=== PATIENT | female | born 1975 | race Caucasian/White ===

== ENCOUNTER → 2017-04-17 | Outpatient (CLI) | payer BC ==
--- NOTE | 2017-04-17 16:41 | US ---
EXAMINATION TYPE: US pelvic complete DATE OF EXAM: 04/17/2017 COMPARISON: Previous study dated 07/14/2015. CLINICAL HISTORY: R10.2 PELVIC PAIN,D25.9 KNOWN UTERINE LEIOMYOMA. Patient is scheduled for hysterect lora May 25 due to pain and pressure from known fibroids, patient states she has a hard time filling bl adder due to pressure from fibroids. TECHNIQUE: TA Date of LMP: 03/31/2017 EXAM MEASUREMENTS: Uterus: 13.8 x 10.9 x 9.0cm Endometrial Stripe: 1.2cm Right Ovary: 3.6 x 2.6 x 2.5cm Left Ovary: not seen 1. Uterus: Anteverted large in size, multiple fibroids, largest 2 that were seen were left sided a nd measured 7.9cm and 5.4cm 2. Endometrium: wnl 3. Right Ovary: wnl 4. Left Ovary: not seen, large uterine fibroids sat left sided which may have obscured views along w ith bowel gas 5. Bilateral Adnexa: wnl 6. Posterior cul-de-sac: wnl IMPRESSION: FIBROID UTERUS.
== END | disposition home or self-care (01) ==
LOC: RADUSWWP 15:10
PROVIDERS: ATTEND Obstetrics & Gynecology
DX: D25.9 Leiomyoma of uterus, unspecified (principal); N92.0 Excessive and frequent menstruation with regular cycle
CPT/HCPCS: 36415; 76856; 84439; 84443

== ENCOUNTER → 2017-04-30 | Outpatient (CLI) | payer BC ==
--- NOTE | 2017-05-01 12:06 | XR ---
Right foot HISTORY: Pain 3 views of the right foot No comparisons Mild degenerative change present at the first metatarsophalangeal joint. Bone mineralization, joint s paces and alignment are essentially maintained. No fracture or dislocation. IMPRESSION: Mild degenerative changes described.
== END ==
LOC: RADXRMAIN 19:05
PROVIDERS: ATTEND Family Medicine
DX: M79.671 Pain in right foot (principal)

== ENCOUNTER → 2017-05-03 | Outpatient (CLI) | payer BC ==
--- NOTE | 2017-05-04 09:51 | MM ---
Reason for exam: screening (asymptomatic). Physical Findings: A clinical breast exam by your physician is recommended on an annual basis and results should be correlated with mammographic findings. MG Screening Mammo w CAD Bilateral CC and MLO view(s) were taken. No prior studies available for comparison. The breast tissue is heterogeneously dense. This may lower the sensitivity of mammography. No significant changes when compared with prior studies. ASSESSMENT: Benign, BI-RAD 2 RECOMMENDATION: Routine screening mammogram of both breasts in 1 year.
== END ==
LOC: RADMAMWWP 07:23
PROVIDERS: ATTEND Obstetrics & Gynecology
DX: Z12.31 Encounter for screening mammogram for malignant neoplasm of breast (principal)

== ENCOUNTER → 2017-05-18 | Outpatient (CLI) | payer BC ==
[2017-05-18 08:41] LABS: Basophils % (A) 1 %; CH 30.5; CHCM 34.6; Eosinophils # (A) 0.2 k/uL (0-0.7); Eosinophils % (A) 4 %; HCT 43.3 % (34.0-46.0); HDW 2.64; HGB 14.5 gm/dL (11.4-16.0); Luc # (Auto) 0.16; Luc % (Auto) 2; Lymphocytes # (A) 1.6 k/uL (1.0-4.8); Lymphocytes % (A) 25 %; MCH 29.7 pg (25.0-35.0); MCHC 33.5 g/dL (31.0-37.0); MCV 88.5 fL (80.0-100.0); Mean Platelet Volume 7.8; Monocytes # (A) 0.3 k/uL (0-1.0); Monocytes % (A) 4 %; Neutrophils # (A) 4.3 k/uL (1.3-7.7); Neutrophils % (A) 65 %; RBC 4.89 m/uL (3.80-5.40); RDW 13.6 % (11.5-15.5); WBC 6.7 k/uL (3.8-10.6); WBC (Perox) 6.46
[2017-05-18 08:48] LABS: Anion Gap 7 mmol/L; Blood Urea Nitrogen 12 mg/dL (7-17); Calcium 9.1 mg/dL (8.4-10.2); Carbon Dioxide 27 mmol/L (22-30); Chloride 106 mmol/L (98-107); Glucose 92 mg/dL (74-99); Non-African American GFR(MDRD) >60 (>60 ml/min/1.73 sqM); Potassium 4.3 mmol/L (3.5-5.1); Sodium 140 mmol/L (137-145)
== END | disposition home or self-care (01) ==
LOC: LABPAT 07:52
PROVIDERS: ATTEND Obstetrics & Gynecology
DX: Z01.812 Encounter for preprocedural laboratory examination (principal)
CPT/HCPCS: 80048; 85025; 86850; 86900; 86901

== ENCOUNTER 2017-05-25 06:09 | Inpatient (IN) | payer BC, OTHER ==
--- NOTE | 2017-05-24 18:41 | P.HPOB ---
History of Present Illness H&P Date: 05/24/17 Chief Complaint: Menorrhagia, uterine fibroids, pelvic pain This is a 41-year-old female 2 para 2 who presents for total abdominal hysterectomy with bilateral salpingectomy, possible bilateral salpingo- oophorectomy, due to pelvic pain, excessive menstrual bleeding, and uterine fibroids. She complains of severe pain during her menses she did try a control pill which did not help with the pain. She bleeds very heavy for at least 7 days with large clots. Her most recent pelvic ultrasounds showed a uterus measuring 13.8 x 10.9 x 9 cm with an endometrial stripe of 1.2 cm. Her right ovary appeared normal and her left ovary was not visualized. Her uterus did show multiple fibroids largest measured up to 7.9 cm. Obstetrical history: . History of 2 vaginal deliveries. Gynecologic history: No history of sexually transmitted diseases Social history: She is and currently works as a teacher. She currently has steady boyfriend since 2011. Review of Systems Constitutional: Denies chills, Denies fever Eyes: denies blurred vision, denies pain Ears, nose, mouth and throat: Denies headache, Denies sore throat Cardiovascular: Denies chest pain, Denies shortness of breath Respiratory: Denies cough Gastrointestinal: Reports abdominal pain (Lower abdominal), Reports constipation Genitourinary: Reports dysmenorrhea, Reports menorrhagia, Reports pelvic pain, Reports stress incontinence Menstruation: Reports period heavy Musculoskeletal: Reports low back pain Integumentary: Denies pruritus, Denies rash Neurological: Reports headaches Psychiatric: Reports depression, Reports irritability Past Medical History Past Medical History: GERD/Reflux Additional Past Medical History / Comment(s): FIBROIDS. URINARY INCONTINENCE. BLOATING History of Any Multi-Drug Resistant Organisms: MRSA Date of last positivie culture/infection: 02/2012 MDRO Source:: SKIN:LEFT KNEE,HIP & SHOULDER Additional Past Surgical History / Comment(s): WISDOM TEETH, IMPLANT, EXTRACTION Past Anesthesia/Blood Transfusion Reactions: No Reported Reaction Past Psychological History: Anxiety, Depression Smoking Status: Never smoker Past Alcohol Use History: Rare Past Drug Use History: None Reported - Past Family History Mother Family Medical History: Cancer, Deep Vein Thrombosis (DVT) Medications and Allergies Home Medications Medication Instructions Recorded Confirmed Type ALPRAZolam [Xanax] 0.5 mg PO Q8H PRN 05/23/17 05/23/17 History Calcium Carbonate [Tums] 1 - 2 tab PO DIRECTED PRN 05/23/17 05/23/17 History Allergies Allergy/AdvReac Type Severity Reaction Status Date / Time Fish Containing Products Allergy Rash/Hives Verified 05/23/17 08:45 [Fish] Iodinated Contrast- Oral and Allergy Rash/Hives Verified 05/23/17 08:45 IV Dye [Iodinated Contrast Media - IV Dye] nickel Allergy Rash/Hives Verified 05/23/17 08:45 shellfish derived [Shellfish] Allergy Rash/Hives Verified 05/23/17 08:45 Exam Osteopathic Statement: *. No significant issues noted on an osteopathic structural exam other than those noted in the History and Physical/Consult. HEENT: Within normal limits Heart: Regular rate and rhythm Lungs: Clear to auscultation bilaterally Abdomen: Soft, nontender Pelvic exam: Uterus is enlarged to approximately 15 weeks size with nodularity more towards the left side. Uterus is nontender, left adnexa is mildly tender with no adnexal masses palpated. Extremities: Negative Homans Assessment and Plan (1) Menorrhagia with regular cycle Status: Acute (2) Uterine leiomyoma Status: Acute (3) Pelvic pain Status: Acute Plan: Proceed with total abdominal hysterectomy with bilateral salpingectomy, possible bilateral salpingo-oophorectomy. I have discussed the risks, benefits, and alternative therapies for the above- mentioned procedure and for both sedation/anesthesia as well as necessary blood products administration, if indicated, as they pertain to this patient. The patient has indicated her understanding and acceptance of the risks and procedures discussed.
[~2017-05-25 06:09] MED LIST: ceFAZolin 2 GM in SODIUM CHLORIDE 0.9% 100 ML IVPB ONE
[2017-05-25] MEDS ORDERED: SCOPOLAMINE 1.5MG/72HR PATCH TRANSDERM ONE (06:11)
[2017-05-25] MEDS ORDERED: LIDOCAINE 1% 20 ML VIAL (10MG/ML) FOR IV START INTRADERMA PRN (06:11)
[2017-05-25] MEDS ORDERED: ONDANSETRON 4 MG/2 ML VIAL IVP ONE (06:11)
[2017-05-25] MEDS ORDERED: DEXAMETHASONE SOD PHOSPHATE 10 MG/ML 1 ML VIAL IV ONE (06:11)
[2017-05-25] MEDS ORDERED: LACTATED RINGERS 1,000 ML IV SCH (06:11)
[2017-05-25] MEDS ORDERED: NEOSTIGMINE 1 MG/ML 10 ML VIAL ONE (07:28)
[2017-05-25] MEDS ORDERED: PROPOFOL 10 MG/ML 20 ML VIAL IV ONE (07:28)
[2017-05-25] MEDS ORDERED: MIDAZOLAM 2 MG/2 ML VIAL ONE (07:28)
[2017-05-25] MEDS ORDERED: fentaNYL (PF) 50 MCG/ML 2 ML AMP ONE (07:28)
[2017-05-25] MEDS ORDERED: LABETALOL 5 MG/ML VIAL MDV ONE (07:28)
[2017-05-25] MEDS ORDERED: ROCURONIUM BROMIDE 10 MG/ML 10 ML VIAL IV ONE (07:28)
[2017-05-25] MEDS ORDERED: SUCCINYLCHOLINE CHLORIDE 100 MG/5 ML SYR IV ONE (07:28)
[2017-05-25] MEDS ORDERED: GLYCOPYRROLATE 0.2 MG/ML 2 ML VIAL ONE ×2 (07:28)
[2017-05-25] MEDS ORDERED: NALBUPHINE 10 MG/ML AMPUL IV PRN (08:27)
[2017-05-25] MEDS ORDERED: NALOXONE 0.4 MG/ML 1 ML VIAL IV PRN (08:27)
[2017-05-25] MEDS ORDERED: MORPHINE SULFATE 4 MG/ML SYRINGE IVP PRN (08:27)
[2017-05-25] MEDS ORDERED: diphenhydrAMINE 50 MG/ML 1 ML VIAL IVP PRN ×2 (08:27→10:53)
[2017-05-25] MEDS ORDERED: LACTATED RINGERS 1,000 ML IV ONE (08:30)
--- NOTE | 2017-05-25 09:12 | P.OP ---
Date of Procedure: 05/25/17 Preoperative Diagnosis: 1. Menorrhagia with regular cycle. 2. Large uterine fibroids. 3. Pelvic pain. Postoperative Diagnosis: Same Procedure(s) Performed: Total abdominal hysterectomy with bilateral salpingectomy Implants: Anesthesia: GETA, spinal (Duramorph) Surgeon: Bonnie Mak Kayak Maker #1: Yany Thompson Estimated Blood Loss (ml): 400 Urine output (ml): 100 Pathology: other (Uterus with cervix and bilateral fallopian tubes) Condition: stable Disposition: floor Indications for Procedure: This is a 41-year-old female 2 para 2 who presents for total abdominal hysterectomy with bilateral salpingectomy, possible bilateral salpingo- oophorectomy, due to pelvic pain, excessive menstrual bleeding, and uterine fibroids. She complains of severe pain during her menses she did try a control pill which did not help with the pain. She bleeds very heavy for at least 7 days with large clots. Her most recent pelvic ultrasounds showed a uterus measuring 13.8 x 10.9 x 9 cm with an endometrial stripe of 1.2 cm. Her right ovary appeared normal and her left ovary was not visualized. Her uterus did show multiple fibroids largest measured up to 7.9 cm. Operative Findings: Uterus is very large and bulky with multiple large fibroids noted. Both ovaries appeared normal. Both tubes appeared normal. Description of Procedure: The patient is taken to the operating room where she is placed in the dorsal supine position. She is prepped and draped in the normal sterile fashion including Perez catheter insertion and vaginal prep. A Pfannenstiel skin incision is made through the previous laparotomy scar with a scalpel. A second knife was used to carry the incision down to the underlying layer of fascia. The fascia was nicked in the midline with a scalpel and then extended laterally bilaterally with Perez scissors. The superior aspect of the fascial incision was grasped with Nirali clamps, elevated off the underlying rectus muscle in the midline and then cut with Perez scissors. The inferior aspect of the fascial incision was grasped with Nirali clamps, elevated off the underlying rectus muscle in the midline and then cut with Perez scissors. Next the peritoneum was identified and entered sharply with Perez scissors. It is extended superiorly and inferiorly with Metzenbaum scissors with good visualization of underlying structures. Next the Yuan retractor is placed in the bladder blade was inserted. The bowels were packed with a 3 yard moist laparotomy sponge. Next the uterus is brought up incision and the corneal regions are grasped with Sylvia clamps on both sides. Next the fallopian tube on the left side is brought up to the incision and the mesosalpinx is clamped with a Shabana clamp. This is cut with Perez scissors and then sutured with 0 Vicryl suture in Shabana transfixion stitch. The remaining mesosalpinx is also clamped with a Shabana clamp, cut with Perez scissors, and sutured with 0 Vicryl suture in Shabana transfixion stitches. Next the uterine ovarian ligament is clamped with a Shbaana clamp, cut with Perez scissors, and then sutured with 0 Vicryl suture in Shabana transfixion stitch. The same procedure is carried out on the right side. The uterine arteries are then clamped with Shabana clamp on either side. The vesicouterine peritoneum was sharply dissected away from the bladder with Metzenbaum scissors and pushed inferiorly. The uterine arteries are then cut with Perez scissors, and sutured with 0 Vicryl suture in Shabana transfixion stitches. Next the cardinal ligaments were clamped on either side with Shabana clamp, cut with Perez scissors, and sutured with 0 Vicryl suture in Shabana transfixion stitches. The uterosacral ligaments are clamped on either side with Shabana clamps, cut with Perez scissors, and sutured with 0 Vicryl suture in Shabana transfixion stitches on either side. The edges of the vaginal cuff were clamped on either side with a Shabana clamp, cut with Perez scissors, and sutured with 0 Vicryl suture in Shabana transfixion stitches and held on either side. The vaginal mucosa was then cut just below the level of the cervix and the specimen is removed from the field. The edges of the vaginal cuff were held with Nirali clamps. Next the previously held corners of each side of the vaginal cuff were then whipstitched along the connective tissue on either side and brought through the corner of the cuff and tied. Next the vaginal cuff was sutured with 0 Vicryl suture in a running locked fashion. Several interrupted stitches were placed for hemostasis. Good hemostasis was noted. Copious irrigation is carried out with warm saline. Excellent hemostasis is noted. All sponges are removed from the abdomen. The peritoneum is then closed with 0 Vicryl suture in a running fashion. The muscle was then reapproximated with 0 Vicryl suture in interrupted fashion. The fascia layer is then closed with 0 PDS suture in a running fashion with the knots buried on either side and in the midline. Next the subcutaneous tissues closed with 2-0 Vicryl suture in a running fashion. The skin is closed with pippa. All sponge and needle counts are correct and the patient is taken to recovery room in stable condition.
[2017-05-25] MEDS: HYDROmorphone 1 MG/ML 1 ML SYRINGE IVP PRN ×4 (09:34→10:02)
[2017-05-25] MEDS: KETOROLAC 30 MG/ML 1 ML VIAL IVP PRN ×2 (09:39→18:03)
[2017-05-25] MEDS ORDERED: MIDAZOLAM 2 MG/2 ML VIAL IVP ONE (10:06)
[2017-05-25] MEDS ORDERED: METOCLOPRAMIDE 5 MG/ML 2 ML VIAL IVP PRN (10:53)
[2017-05-25] MEDS ORDERED: SIMETHICONE 80 MG CHEWABLE PO PRN (10:53)
[2017-05-25] MEDS ORDERED: ONDANSETRON 4 MG/2 ML VIAL IVP PRN (10:53)
[2017-05-25] MEDS ORDERED: ALPRAZolam 0.5 MG TAB PO PRN (10:53)
[2017-05-25] MEDS ORDERED: KETOROLAC 30 MG/ML 1 ML VIAL IVP PRN (10:53)
[2017-05-25] MEDS ORDERED: Acetaminophen-Codeine 300-30mg TAB PO PRN (10:53)
[2017-05-25 11:25] VITALS: BMI 32.5
[2017-05-25] MEDS: LACTATED RINGERS 1,000 ML IV SCH ×2 (13:10→22:14)
[2017-05-25] MEDS: SENNOSIDES-DOCUSATE SODIUM 1 EACH TAB PO SCH ×2 (17:33→22:18)
[2017-05-26] MEDS: KETOROLAC 30 MG/ML 1 ML VIAL IVP PRN (00:06)
[2017-05-26 06:45] LABS: Basophils % (A) 0 %; CH 30.6; Eosinophils % (A) 0 %; HCT 34.5 % (34.0-46.0); HDW 2.56; Luc # (Auto) 0.16; Luc % (Auto) 2; Lymphocytes # (A) 1.7 k/uL (1.0-4.8); Lymphocytes % (A) 21 %; MCH 29.7 pg (25.0-35.0); MCHC 32.9 g/dL (31.0-37.0); MCV 90.2 fL (80.0-100.0); Mean Platelet Volume 8.1; Monocytes # (A) 0.5 k/uL (0-1.0); Monocytes % (A) 6 %; Neutrophils # (A) 5.8 k/uL (1.3-7.7); Neutrophils % (A) 71 %; RBC 3.82 m/uL (3.80-5.40); RDW 13.6 % (11.5-15.5); WBC 8.2 k/uL (3.8-10.6); WBC (Perox) 8.35
[2017-05-26 06:51] LABS: HGB 11.3 gm/dL (11.4-16.0)
--- NOTE | 2017-05-26 06:56 | P.PN ---
Subjective Principal diagnosis: Status post XAVIER with bilateral salpingectomy postoperative day #1 The patient is doing well. She has been ambulating. Her catheter was just removed this morning and she is not urinated yet. Pain is well-controlled with Toradol at this time. She denies any flatus or bowel movement yet. Objective - Vital Signs Vital signs: Vital Signs Temp 97.1 F L 05/26/17 05:00 Pulse 91 05/26/17 05:00 Resp 20 05/26/17 05:00 BP 111/65 05/26/17 05:00 Pulse Ox 99 05/26/17 05:00 Intake & Output 05/25/17 05/25/17 05/26/17 06:59 18:59 06:59 Intake Total 300 1650 200 Output Total 800 4100 Balance 300 850 -3900 Weight 86.183 kg Intake: IV 300 1100 Oral 550 200 Output: Urine 400 4100 Estimated Blood Loss 400 Other: Voiding Method Indwelling Catheter Indwelling Catheter - Constitutional General appearance: Present: no acute distress - Gastrointestinal Gastrointestinal Comment(s): Abdominal incision is clean dry and intact with pippa in place. No erythema is noted. Minimal tenderness is noted around the incision. General gastrointestinal: Present: normal bowel sounds. Absent: tenderness - Psychiatric Psychiatric: Present: A&O x's 3 - Labs CBC & Chem 7: 05/26/17 06:17 Labs: Abnormal Lab Results - Last 24 Hours (Table) 05/26/17 Range/Units 06:17 Hgb 11.3 L D (11.4-16.0) gm/dL Assessment and Plan (1) Menorrhagia with regular cycle Status: Acute (2) Uterine leiomyoma Status: Acute (3) Pelvic pain Status: Acute Plan: Impression is status post total abdominal hysterectomy with bilateral salpingectomy postoperative day #1. Plan is to continue with postoperative care. We will encourage ambulation and will advance diet as tolerated after flatus. Will Hep-Lock IV.
[2017-05-26] MEDS ORDERED: ACETAMINOPHEN TAB 325 MG TAB PO PRN (07:50)
[2017-05-26] MEDS: SENNOSIDES-DOCUSATE SODIUM 1 EACH TAB PO SCH ×2 (11:19→21:47)
--- NOTE | 2017-05-26 12:12 | P.PN ---
Progress Note - Text Date:[] Time:[] Patient is status post [jean]. Patient seen this morning with VAS score of [2]. c /o of pruritus, c/o nausea/vomiting, comfortable and doing well.
[2017-05-26] MEDS: Acetaminophen-Codeine 300-30mg TAB PO PRN ×2 (13:25→19:54)
[2017-05-26] MEDS: IBUPROFEN 600 MG TAB PO PRN ×2 (16:33→23:13)
[2017-05-26] MEDS: LACTATED RINGERS 1,000 ML IV SCH (20:25)
[2017-05-27] MEDS: Acetaminophen-Codeine 300-30mg TAB PO PRN ×2 (03:20→10:35)
[2017-05-27] MEDS: LACTATED RINGERS 1,000 ML IV SCH (06:25)
[2017-05-27] MEDS: IBUPROFEN 600 MG TAB PO PRN (06:31)
[2017-05-27] MEDS: SENNOSIDES-DOCUSATE SODIUM 1 EACH TAB PO SCH (08:13)
[2017-05-27 08:29] VITALS: BP 126/71; PULSE 97; RESP 20; TEMP 98.8
--- NOTE | 2017-05-27 11:02 | P.DS ---
Providers Date of admission: 05/25/17 06:09 Expected date of discharge: 05/27/17 Attending physician: Bonnie Mak Primary care physician: Juanito Terrazas - Discharge Diagnosis(es) (1) Menorrhagia with regular cycle Current Visit: Yes Status: Acute (2) Uterine leiomyoma Current Visit: Yes Status: Acute (3) Pelvic pain Current Visit: Yes Status: Acute Hospital Course: Qit-klnf-hto female who underwent a total abdominal hysterectomy with bilateral salpingectomy on 05/25/2017. Her postoperative course has been essentially uncomplicated. She is passing flatus and bowel movement. Her pain is fairly well controlled with ibuprofen and Tylenol 3. She is feeling slightly bloated today but thinks she did a little bit too much yesterday. She would still like to go home. Her vital signs are stable. Abdomen is soft with hazard bowel sounds 4. Incision is clean dry and intact with pippa in place. Extremities show negative Homans. Impression is status post total abdominal hysterectomy with bilateral salpingectomy postoperative day #2. Plan is to discharge home today. [place] will be removed and Steri-Strips placed prior to discharge. Routine postoperative instructions are given. She is advised to follow up in the office in approximately 1 week for a postoperative check. She is advised to call the office if she has any further questions or concerns prior to her appointment time. She will be given prescriptions for ibuprofen and Tylenol 3. Procedures: Total abdominal hysterectomy with bilateral salpingectomy on 05/25/2017 Patient Condition at Discharge: Stable Plan - Discharge Summary New Discharge Prescriptions: New Acetaminophen-Codeine 300-30mg [Tylenol w/codeine #3] 1 each PO Q4HR PRN #30 tab PRN Reason: Moderate Pain Ibuprofen [Motrin] 600 mg PO Q6HR PRN #60 tab PRN Reason: Mild Discomfort Continue ALPRAZolam [Xanax] 0.5 mg PO Q8H PRN PRN Reason: Anxiety No Action Calcium Carbonate [Tums] 1 - 2 tab PO QID PRN MDD 7 TABS PRN Reason: GERD Discharge Medication List ALPRAZolam [Xanax] 0.5 mg PO Q8H PRN 05/23/17 [History] Calcium Carbonate [Tums] 1 - 2 tab PO QID PRN MDD 7 TABS 05/23/17 [History] Acetaminophen-Codeine 300-30mg [Tylenol w/codeine #3] 1 each PO Q4HR PRN #30 tab 05/27/17 [Rx] Ibuprofen [Motrin] 600 mg PO Q6HR PRN #60 tab 05/27/17 [Rx] Follow up Appointment(s)/Referral(s): Bonnie Mak DO [Doctor of Osteopathic Medicine] - 1 Week Patient Instructions/Handouts: Hysterectomy (GEN) Activity/Diet/Wound Care/Special Instructions: Diet as tolerated. May shower, but no tub baths for 1 week. No intercourse for 6 weeks. No [address] until off of narcotic pain medication. Discharge Disposition: HOME SELF-CARE
== END 2017-05-27 12:20 | disposition home or self-care (01) | DRG 743 ==
LOC: 2ORWHC 06:09 → 6PED 09:23
PROVIDERS: ADMIT Obstetrics & Gynecology; ATTEND Obstetrics & Gynecology
PROC: 0UTC0ZZ Resection of Cervix, Open Approach (ICD-10-PCS; 2017-05-25)
PROC: 0UT70ZZ Resection of Bilateral Fallopian Tubes, Open Approach (ICD-10-PCS; 2017-05-25)
PROC: 0UT90ZZ Resection of Uterus, Open Approach (ICD-10-PCS; principal; 2017-05-25 07:30)
DX: D25.9 Leiomyoma of uterus, unspecified (principal); K21.9 Gastro-esophageal reflux disease without esophagitis; N92.0 Excessive and frequent menstruation with regular cycle; R32 Unspecified urinary incontinence; L29.9 Pruritus, unspecified; Z79.899 Other long term (current) drug therapy; Z91.041 Radiographic dye allergy status; Z86.14 Personal history of Methicillin resistant Staphylococcus aureus infection; Z86.59 Personal history of other mental and behavioral disorders; Z91.013 Allergy to seafood; Z91.018 Allergy to other foods; Z91.048 Other nonmedicinal substance allergy status
CPT/HCPCS: 81025; 85025; 86850; 86900; 86901; 88307; 94760

== ENCOUNTER 2018-02-21 08:42 | Observation (INO) | payer BC ==
[2018-02-21] MEDS ORDERED: NITROGLYCERIN OINT 1 INCH/GM PACKET TOPICAL STA (09:01)
[2018-02-21] MEDS ORDERED: MORPHINE SULFATE 4 MG/ML SYRINGE IV STA (09:01)
[2018-02-21] MEDS ORDERED: SODIUM CHLORIDE 0.9% 1,000 ML IV STA (09:01)
[2018-02-21] MEDS ORDERED: ASPIRIN 81 MG PO STA (09:01)
--- NOTE | 2018-02-21 09:23 | ED ---
Chest Pain HPI - General Chief Complaint: Chest Pain Stated Complaint: chest pain Time Seen by Provider: 02/21/18 08:51 Source: patient Mode of arrival: wheelchair Limitations: no limitations - History of Present Illness Initial Comments: 42Years Old female comes in with the chest pain started about an hour ago she has not been feeling well for the last few days have seen her primary care physician echocardiogram has been ordered. She is complaining about shortness of breath she is also complaining about today chest pain with deep breaths. Denies any fever no chills she is not coughing up any phlegm. She is a nonsmoker she is not on any controls she status post hysterectomy family history is unremarkable for coronary artery disease as well. Denies any headaches no neck stiffness has chest pain and shortness of breath no abdominal pain no frequency urgency dysuria no sinus symptoms of TIA or CVA - Related Data Home Medications Medication Instructions Recorded Confirmed ALPRAZolam [Xanax] 0.5 mg PO Q8H PRN 05/23/17 02/21/18 Amitriptyline HCl [Elavil] 25 mg PO HS 02/21/18 02/21/18 Allergies Allergy/AdvReac Type Severity Reaction Status Date / Time Fish Containing Products Allergy Rash/Hives Verified 02/21/18 09:23 [Fish] Iodinated Contrast- Oral and Allergy Rash/Hives Verified 02/21/18 09:23 IV Dye [Iodinated Contrast Media - IV Dye] nickel Allergy Rash/Hives Verified 02/21/18 09:23 shellfish derived [Shellfish] Allergy Rash/Hives Verified 02/21/18 09:23 Review of Systems ROS Statement: Those systems with pertinent positive or pertinent negative responses have been documented in the HPI. ROS Other: All systems not noted in ROS Statement are negative. EKG Findings - EKG Comments: EKG Findings:: EKG is normal sinus rhythm ventricular rate is 87 DE interval is 164 QRS duration is 84 QT/QTC 364/438 review of this EKG reveals some T-wave inversion in lead [address] elevation or ST depression noticed any other leads Past Medical History Past Medical History: GERD/Reflux Additional Past Medical History / Comment(s): FIBROIDS. URINARY INCONTINENCE. BLOATING History of Any Multi-Drug Resistant Organisms: MRSA Date of last positivie culture/infection: 02/2012 MDRO Source:: SKIN:LEFT KNEE,HIP & SHOULDER Past Surgical History: Hysterectomy Additional Past Surgical History / Comment(s): WISDOM TEETH, IMPLANT, EXTRACTION Past Anesthesia/Blood Transfusion Reactions: No Reported Reaction Past Psychological History: Anxiety, Depression Smoking Status: Never smoker Past Alcohol Use History: Rare Past Drug Use History: None Reported - Past Family History Mother Family Medical History: Cancer, Deep Vein Thrombosis (DVT) General Exam - General Exam Comments Initial Comments: General: The patient is awake and alert, in no distress, is very anxious about right now she feels pressure Skin: Skin is warm and dry and no rashes or lesions are noted. Eye: Pupils are equal, round and reactive to light, extra-ocular movements are intact; there is normal conjunctiva bilaterally. Ears, nose, mouth and throat: There are moist mucous membranes and no oral lesions. Neck: The neck is supple, there is no tenderness or JVD. Cardiovascular: There is a regular rate and rhythm. No murmur, rub or gallop is appreciated. Respiratory: To auscultation bilateral, no wheezing no rhonchi no distress respiratory patterson noticed Gastrointestinal: Soft, non-distended, non-tender abdomen without masses or organomegaly noted. There is no rebound or guarding present. Bowel sounds are unremarkable. Back: There is no tenderness to palpation in the midline. There is no obvious deformity. Musculoskeletal: Normal ROM, no tenderness, There is no pedal edema. There is no calf tenderness or swelling. No cords were appreciated. Neurological: CN II-XII intact, Cranial nerves III through XII are intact. There are no obvious motor or sensory deficits. Coordination appears grossly intact. Speech is normal. Psychiatric: Cooperative, appropriate mood & affect, normal judgment. Limitations: no limitations Course Vital Signs 02/21/18 02/21/18 08:43 10:13 Temperature 98.0 F Pulse Rate 80 88 Respiratory 20 16 Rate Blood Pressure 143/101 138/75 O2 Sat by Pulse 99 98 Oximetry is reassessed at term 11:00 she feels 90% better she still has slight chest tightness, EKG only had a 1 T-wave inversion CBC is normal d-dimer is unremarkable troponin is unremarkable chest x-ray is unremarkable we'll go ahead and admit her observation under Dr. Chase's service Dr. nettles is being covered with Dr. Garcia will consult cardiology Disposition Clinical Impression: Chest pain Disposition: ADMITTED IP TO THIS HOSP Condition: Good Referrals: Juanito Terrazas DO [Primary Care Provider] - 1-2 days
[2018-02-21 09:52] LABS: ALT 23 U/L (9-52); AST 34 U/L (14-36); Albumin 4.3 g/dL (3.5-5.0); Alkaline Phosphatase 64 U/L (38-126); Amylase 64 U/L (30-110); Anion Gap 13 mmol/L; Blood Urea Nitrogen 21 mg/dL (7-17); Calcium 9.6 mg/dL (8.4-10.2); Carbon Dioxide 25 mmol/L (22-30); Chloride 104 mmol/L (98-107); Glucose 88 mg/dL (74-99); Lipase 99 U/L (23-300); Magnesium 1.9 mg/dL (1.6-2.3); Sodium 142 mmol/L (137-145); Total Bilirubin 0.5 mg/dL (0.2-1.3); Total Protein 7.2 g/dL (6.3-8.2)
[2018-02-21 10:01] LABS: Potassium 4.9 mmol/L (3.5-5.1)
[2018-02-21 10:04] LABS: Basophils % (A) 0 %; Eosinophils # (A) 0.3 k/uL (0-0.7); Eosinophils % (A) 5 %; HCT 42.9 % (34.0-46.0); HGB 14.8 gm/dL (11.4-16.0); Lymphocytes # (A) 1.9 k/uL (1.0-4.8); Lymphocytes % (A) 36 %; MCHC 34.4 g/dL (31.0-37.0); MCV 84.3 fL (80.0-100.0); Mean Platelet Volume 7.1; Monocytes # (A) 0.4 k/uL (0-1.0); Monocytes % (A) 7 %; Neutrophils # (A) 2.7 k/uL (1.3-7.7); Neutrophils % (A) 49 %; Platelet Count 259 k/uL (150-450); RBC 5.08 m/uL (3.80-5.40); RDW 12.1 % (11.5-15.5); WBC 5.4 k/uL (3.8-10.6)
[2018-02-21 10:08] LABS: Creatine Kinase 64 U/L (30-135)
[2018-02-21 10:18] LABS: Creatine Kinase MB 0.7 ng/mL (0.0-2.4); Troponin I <0.012 ng/mL (0.000-0.034)
[2018-02-21 10:18] LABS: D-Dimer 0.44 mg/L FEU (<0.60); Partial Thromboplastin Time 22.6 sec (22.0-30.0); Prothrombin Time 9.5 sec (9.0-12.0)
--- NOTE | 2018-02-21 10:25 | XR ---
EXAMINATION TYPE: XR chest 2V DATE OF EXAM: 02/21/2018 COMPARISON: NONE HISTORY: Chest pain TECHNIQUE: Frontal and lateral views of the chest are obtained. FINDINGS: There is no focal air space opacity, pleural effusion, or pneumothorax seen. The cardiac silhouette size is within normal limits. The osseous structures are intact. There are overlying car diac leads. IMPRESSION: No acute cardiopulmonary process.
[2018-02-21] MEDS ORDERED: MORPHINE SULFATE 4 MG/ML SYRINGE IV PRN (11:09)
[2018-02-21] MEDS ORDERED: NITROGLYCERIN SL TABS 0.4 MG TAB SUBLINGUAL PRN (11:09)
[2018-02-21] MEDS ORDERED: ALPRAZolam 0.5 MG TAB PO PRN (11:21)
--- NOTE | 2018-02-21 11:31 | P.HPIM ---
History of Present Illness Patient is a pleasant 42-year-old female came in with compensative chest pressure like sensation started today morning nonexertional while she is riding the bus squeezing type pain 5/10 in severity no associated shortness of breath no lightheadedness. Patient was having acid reflux issues for about couple days none of these symptoms are related to the acid reflux. Patient denied any fever chills denied any cough runny nose. Chest x-ray is essentially within normal limits EKG showed normal sinus rhythm 7 with some T-wave inversions in lead 3. Patient's chest pain is nonpruritic d-dimer is negative chest x-rays negative and not associated with food. Resolved after she came to ER lasted for about an hour patient was given sublingual nitro as well as morphine not sure which one of those helped her patient doesn't have any history of premature coronary artery disease, hypertension diabetes mellitus or hyperlipidemia not a smoker. Review of Systems REVIEW OF SYSTEMS: CONSTITUTIONAL: No fever, no malaise, no fatigue. HEENT: No recent visual problems or hearing problems. Denied any sore throat. CARDIOVASCULAR: No orthopnea, PND, no palpitations, no syncope. PULMONARY: No shortness of breath, no cough, no hemoptysis. GASTROINTESTINAL: No diarrhea, no nausea, no vomiting, no abdominal pain. Normoactive bowel sounds. NEUROLOGICAL: No headaches, no weakness, no numbness. HEMATOLOGICAL: Denies any bleeding or petechiae. GENITOURINARY: Denies any burning micturition, frequency, or urgency. MUSCULOSKELETAL/RHEUMATOLOGICAL: Denies any joint pain, swelling, or any muscle pain. ENDOCRINE: Denies any polyuria or polydipsia. The rest of the 14-point review of systems is negative. Past Medical History Past Medical History: GERD/Reflux Additional Past Medical History / Comment(s): FIBROIDS. URINARY INCONTINENCE. BLOATING History of Any Multi-Drug Resistant Organisms: MRSA Date of last positivie culture/infection: 02/2012 MDRO Source:: SKIN:LEFT KNEE,HIP & SHOULDER Past Surgical History: Hysterectomy Additional Past Surgical History / Comment(s): WISDOM TEETH, IMPLANT, EXTRACTION Past Anesthesia/Blood Transfusion Reactions: No Reported Reaction Past Psychological History: Anxiety, Depression Smoking Status: Never smoker Past Alcohol Use History: Rare Past Drug Use History: None Reported - Past Family History Mother Family Medical History: Cancer, Deep Vein Thrombosis (DVT) Medications and Allergies Home Medications Medication Instructions Recorded Confirmed Type ALPRAZolam [Xanax] 0.5 mg PO Q8H PRN 05/23/17 02/21/18 History Amitriptyline HCl [Elavil] 25 mg PO HS 02/21/18 02/21/18 History Allergies Allergy/AdvReac Type Severity Reaction Status Date / Time Fish Containing Products Allergy Rash/Hives Verified 02/21/18 09:23 [Fish] Iodinated Contrast- Oral and Allergy Rash/Hives Verified 02/21/18 09:23 IV Dye [Iodinated Contrast Media - IV Dye] nickel Allergy Rash/Hives Verified 02/21/18 09:23 shellfish derived [Shellfish] Allergy Rash/Hives Verified 02/21/18 09:23 Physical Exam Vitals: Vital Signs Temp Pulse Resp BP Pulse Ox 02/21/18 11:04 85 16 126/74 97 02/21/18 10:13 88 16 138/75 98 02/21/18 08:43 98.0 F 80 20 143/101 99 Intake and Output 02/20/18 02/21/18 02/21/18 22:59 06:59 14:59 Other: Weight 87.09 kg PHYSICAL EXAMINATION: GENERAL: The patient is alert and oriented x3, not in any acute distress. Well developed, well nourished. HEENT: Pupils are round and equally reacting to light. EOMI. No scleral icterus. No conjunctival pallor. Normocephalic, atraumatic. No pharyngeal erythema. No thyromegaly. CARDIOVASCULAR: S1 and S2 present. No murmurs, rubs, or gallops. PULMONARY: Chest is clear to auscultation, no wheezing or crackles. ABDOMEN: Soft, nontender, nondistended, normoactive bowel sounds. No palpable organomegaly. MUSCULOSKELETAL: No joint swelling or deformity. EXTREMITIES: No cyanosis, clubbing, or pedal edema. NEUROLOGICAL: Gross neurological examination did not reveal any focal deficits. SKIN: No rashes. Results CBC & Chem 7: 02/21/18 09:50 02/21/18 09:08 Labs: Abnormal Lab Results - Last 24 Hours (Table) 02/21/18 Range/Units 09:08 BUN 21 H (7-17) mg/dL Assessment and Plan Plan: -Chest pain: Unsure of the exact etiology will rule out a concurrent syndromes and unstable angina we will repeat 2 more sets of troponins and EKG. Cardiology was consulted. -Cast esophageal reflux disease patient was started on Protonix -Anxiety disorder.
[2018-02-21] MEDS: PANTOPRAZOLE 40 MG/10 ML VIAL IVP SCH (12:59)
[2018-02-21 15:15] LABS: Creatine Kinase 41 U/L (30-135)
[2018-02-21 15:28] LABS: Creatine Kinase MB 0.6 ng/mL (0.0-2.4); Troponin I <0.012 ng/mL (0.000-0.034)
[2018-02-21] MEDS ORDERED: AMITRIPTYLINE HCL 25 MG TAB PO SCH (21:00)
[2018-02-21 21:38] LABS: Creatine Kinase 41 U/L (30-135)
[2018-02-21 21:50] LABS: Creatine Kinase MB 0.7 ng/mL (0.0-2.4); Troponin I <0.012 ng/mL (0.000-0.034)
[2018-02-22 02:30] LABS: Cholesterol 149 mg/dL (<200); HDL Cholesterol 37 mg/dL (40-60); LDL Cholesterol,Calculated 91 mg/dL (0-99); Triglycerides 104 mg/dL (<150)
[2018-02-22 08:54] VITALS: RESP 16
--- NOTE | 2018-02-22 08:54 | P.CRDCN ---
History of Present Illness History of present illness: Mrs. Awad is a pleasant 42-year-old female past medical history significant for anxiety and recent partial hysterectomy. She denies personal history of coronary artery disease and is never seen a manufacturing project engineer for any reason. She does have history of valvular heart disease and her extended family with her grandmother. Patient is here in consultation for chest pain. 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 She developed a sharp stabbing pain in the right anterior chest wall. She states it felt extremely was repeatedly punching her in the chest. She was acutely short of breath and became diaphoretic. She states over the weekend she had been suffering from frequent bouts of indigestion and nausea as well. At the time of the pain she denies symptoms of palpitations, dizziness, nausea, vomiting. After the symptoms persisted for about 20 minutes she because diaphoretic and clammy. This is when she decided to come to the emergency department for evaluation. Ultimately the pain subsided on its own with no specific alleviating factors. EKG on arrival reveals sinus mechanism T-wave inversion in the inferior leads. Telemetry tracings have been unremarkable. Chest x-ray is negative for an acute cardiopulmonary process. Laboratory data reviewed, d-dimer negative and cardiac enzymes negative 3. She takes no daily cardiac medications. She takes Xanax as needed for anxiety. Review of Systems At the time of my exam: CONSTITUTIONAL: Denies fever. Denies chills. EYES: Denies blurred vision. Denies vision changes. Denies eye pain. EARS, NOSE, MOUTH & THROAT: Denies headache. Denies sore throat. Denies ear pain. CARDIOVASCULAR: Denies chest pain. Denies shortness of breath. Denies orthopnea. Denies PND. Denies palpitations. RESPIRATORY: Denies cough. GASTROINTESTINAL: Denies abdominal pain. Denies diarrhea. Denies constipation. Denies nausea. Denies vomiting. MUSCULOSKELETAL: Denies myalgias. INTEGUMENTARY: Denies pruitis. Denies rash. NEUROLOGIC: Denies numbness. Denies tingling. Denies weakness. PSYCHIATRIC: Denies anxiety. Denies depression. ENDOCRINE: Denies fatigue. Denies weight change. Denies polydipsia. Denies polyurina. GENITOURINARY: Denies burning, hematuria or urgency with micturation. HEMATOLOGIC: Denies history of anemia. Denies bleeding. Past Medical History Past Medical History: GERD/Reflux Additional Past Medical History / Comment(s): FIBROIDS. URINARY INCONTINENCE. History of Any Multi-Drug Resistant Organisms: MRSA Date of last positivie culture/infection: 02/2012 MDRO Source:: SKIN:LEFT KNEE,HIP & SHOULDER Past Surgical History: Hysterectomy Additional Past Surgical History / Comment(s): WISDOM TEETH EXTRACTION, upper dental implant Past Anesthesia/Blood Transfusion Reactions: No Reported Reaction Smoking Status: Never smoker - Past Family History Mother Family Medical History: Cancer, Deep Vein Thrombosis (DVT), Hyperlipidemia, Hypertension, Thyroid Disorder Additional Family Medical History / Comment(s): breast cancer Father Family Medical History: Hyperlipidemia, Hypertension Additional Family Medical History / Comment(s): boarderline diabetic Medications and Allergies Home Medications Medication Instructions Recorded Confirmed Type ALPRAZolam [Xanax] 0.5 mg PO Q8H PRN 05/23/17 02/21/18 History Amitriptyline HCl [Elavil] 25 mg PO HS 02/21/18 02/21/18 History Allergies Allergy/AdvReac Type Severity Reaction Status Date / Time Fish Containing Products Allergy Rash/Hives Verified 02/21/18 09:23 [Fish] Iodinated Contrast- Oral and Allergy Rash/Hives Verified 02/21/18 09:23 IV Dye [Iodinated Contrast Media - IV Dye] nickel Allergy Rash/Hives Verified 02/21/18 09:23 shellfish derived [Shellfish] Allergy Rash/Hives Verified 02/21/18 09:23 Physical Exam Vitals: Vital Signs Temp Pulse Pulse Resp BP BP Pulse Ox 02/22/18 04:00 97.7 F 81 18 111/64 95 02/22/18 03:44 16 02/22/18 00:07 63 16 127/79 98 02/22/18 00:00 16 02/21/18 20:46 96 02/21/18 20:06 98.3 F 85 16 136/80 98 02/21/18 20:00 16 02/21/18 16:08 97.9 F 80 18 118/74 96 02/21/18 15:48 81 16 118/61 96 02/21/18 12:53 82 16 104/69 96 02/21/18 12:52 73 16 104/69 96 02/21/18 11:04 85 16 126/74 97 02/21/18 10:13 88 16 138/75 98 02/21/18 08:43 98.0 F 80 20 143/101 99 Intake and Output 02/21/18 02/22/18 02/22/18 22:59 06:59 14:59 Intake Total 200 Balance 200 Intake: Oral 200 Other: Voiding Method Toilet Toilet # Voids 2 Weight 88 kg Blood pressure 111/64 heart rate 81 afebrile maintaining oxygen saturation on room air GENERAL: This is a 42-year-old female in no apparent distress at the time of my examination. HEENT: Head is atraumatic, normocephalic. Pupils are equal, round. Sclerae anicteric. Conjunctivae are clear. Mucous membranes of the mouth are moist. Neck is supple. There is no jugular venous distention. No carotid bruit is heard. LUNGS: Clear to auscultation no wheezes, rales or rhonchi. No chest wall tenderness is noted on palpation or with deep breathing. HEART: Regular rate and rhythm with faint murmur, no rubs or gallops. S1 and S2 heard. ABDOMEN: Soft, nontender. Bowel sounds are heard. No organomegaly noted. EXTREMITIES: No evidence of peripheral edema and no calf tenderness noted. VASCULAR: Radial and dorsalis pedis pulses palpated, no evidence of clubbing. NEUROLOGIC: Patient is awake, alert and oriented x3. Results 02/21/18 09:50 02/21/18 09:08 Cardiac Enzymes 02/21/18 02/21/18 02/21/18 Range/Units 09:08 09:08 14:40 AST 34 (14-36) U/L CK-MB (CK-2) 0.7 0.6 (0.0-2.4) ng/mL Troponin I <0.012 <0.012 (0.000-0.034) ng/mL 02/21/18 Range/Units 20:50 AST (14-36) U/L CK-MB (CK-2) 0.7 (0.0-2.4) ng/mL Troponin I <0.012 (0.000-0.034) ng/mL Coagulation 02/21/18 Range/Units 09:50 PT 9.5 (9.0-12.0) sec APTT 22.6 (22.0-30.0) sec Lipids 02/21/18 Range/Units 09:08 Triglycerides 104 (<150) mg/dL Cholesterol 149 (<200) mg/dL HDL Cholesterol 37 L (40-60) mg/dL CBC 02/21/18 Range/Units 09:50 WBC 5.4 (3.8-10.6) k/uL RBC 5.08 (3.80-5.40) m/uL Hgb 14.8 (11.4-16.0) gm/dL Hct 42.9 (34.0-46.0) % Plt Count 259 (150-450) k/uL Comprehensive Metabolic Panel 02/21/18 Range/Units 09:08 Sodium 142 (137-145) mmol/L Potassium 4.9 (3.5-5.1) mmol/L Chloride 104 (98-107) mmol/L Carbon Dioxide 25 (22-30) mmol/L BUN 21 H (7-17) mg/dL Creatinine 0.69 (0.52-1.04) mg/dL Glucose 88 (74-99) mg/dL Calcium 9.6 (8.4-10.2) mg/dL AST 34 (14-36) U/L ALT 23 (9-52) U/L Alkaline Phosphatase 64 (38-126) U/L Total Protein 7.2 (6.3-8.2) g/dL Albumin 4.3 (3.5-5.0) g/dL Current Medications Generic Name Dose Route Start Last Admin Trade Name Freq PRN Reason Stop Dose Admin Alprazolam 0.5 mg 02/21/18 11:21 Xanax PO Q8H PRN Anxiety Amitriptyline HCl 25 mg 02/21/18 21:00 02/21/18 21:14 Elavil PO 25 mg HS WILLI Administration Aspirin 325 mg 02/22/18 09:00 Aspirin PO DAILY WILLI Morphine Sulfate 4 mg 02/21/18 11:09 Morphine Sulfate (Inj) IV Q5M PRN Chest Pain Nitroglycerin 0.4 mg 02/21/18 11:09 Nitrostat SUBLINGUAL Q5M PRN Chest Pain Pantoprazole Sodium 40 mg 02/21/18 11:30 02/21/18 12:59 Protonix IVP 40 mg DAILY WILLI Administration Intake and Output 02/21/18 02/22/18 02/22/18 22:59 06:59 14:59 Intake Total 200 Balance 200 Intake: Oral 200 Other: Voiding Method Toilet Toilet # Voids 2 Weight 88 kg 02/21/18 09:50 02/21/18 09:08 Assessment and Plan Assessment: ASSESSMENT 1. Chest pain, atypical. An acute coronary event has been ruled out. 2. History of anxiety 3. Obesity PLAN Acute coronary event has been ruled out. Obtain 2-D echocardiogram and Doppler study to assess cardiac structure and function Obtain ultrasound of the abdomen to assess gallbladder. If abdominal ultrasound is negative for any gallbladder disease will consider exercise stress testing. This can be performed today or as an outpatient. Further recommendations to follow based upon clinical course. Thank you kindly for this consultation. Nurse Practitioner note has been reviewed, I agree with a documented findings and plan of care. Patient was seen and examined.
[2018-02-22] MEDS ORDERED: MORPHINE ORAL SOLN 10 MG/5 ML CUP PO PRN (08:57)
[2018-02-22] MEDS ORDERED: ASPIRIN 81 MG PO SCH (09:00)
[2018-02-22] MEDS ORDERED: ASPIRIN 325 MG TAB PO SCH (09:00)
--- NOTE | 2018-02-22 11:16 | US ---
EXAMINATION TYPE: US abdomen complete DATE OF EXAM: 02/22/2018 COMPARISON: NONE CLINICAL HISTORY: abd pain. chest pain EXAM MEASUREMENTS: Liver Length: 15.8 cm Gallbladder Wall: 0.3 cm CBD: 0.2 cm Spleen: 11.8 cm Right Kidney: 11.4 x 3.9 x 4.7 cm Left Kidney: 12.5 x 4.6 x 4.5 cm Pancreas: visualized portions appear wnl Liver: appears wnl Gallbladder: no evidence of stones Evidence for sonographic Kaur's sign: no CBD: wnl Spleen: wnl Right Kidney: no evidence of hydronephrosis or mass Left Kidney: no evidence of hydronephrosis or mass Upper IVC: wnl Abd Aorta: appears wnl The liver is homogenous. The intrahepatic portion of the IVC and proximal abdominal aorta are within normal limits. There is no evidence of cholelithiasis. Common bile duct is unremarkable. The visu alized portions of the pancreas are homogenous. The spleen is unremarkable. Kidneys are symmetric a nd free of hydronephrosis. No renal lesions are seen. IMPRESSION: 1. No significant abnormality appreciated.
--- NOTE | 2018-02-22 11:56 | ECHOF ---
Referral Reason:cp MEASUREMENTS -------- HEIGHT: 162.6 cm WEIGHT: 88.0 kg BP: 111/64 RVIDd: 2.7 cm (< 3.3) IVSd: 1.0 cm (0.6 - 1.1) LVIDd: 3.8 cm (3.9 - 5.3) LVPWd: 1.1 cm (0.6 - 1.1) IVSs: 1.7 cm LVIDs: 2.5 cm LVPWs: 1.4 cm LA Diam: 3.2 cm (2.7 - 3.8) LAESV Index (A-L): 13.28 ml/m Ao Diam: 2.9 cm (2.0 - 3.7) AV Cusp: 2.1 cm (1.5 - 2.6) MV EXCURSION: 9.306 mm (> 18.000) MV EF SLOPE: 21 mm/s (70 - 150) EPSS: 0.6 cm MV E Clarence: 0.61 m/s MV DecT: 282 ms MV A Clarence: 0.73 m/s MV E/A Ratio: 0.83 FINDINGS -------- Sinus rhythm. This was a technically good study. The left ventricular size is normal. Left ventricular wall thickness is normal. Overall left vent ricular systolic function is normal with, an EF between 60 - 65 %. The right ventricle is normal in size. Normal LA size by volume 22+/-6 ml/m2. The right atrium is normal in size. The aortic valve is trileaflet and appears structurally normal. The mitral valve is normal. The tricuspid valve appears structurally normal. Trace/mild (physiologic) pulmonic regurgitation. The aortic root size is normal. Normal inferior vena cava with normal inspiratory collapse consistent with estimated right atrial pre ssure of 5 mmHg. There is no pericardial effusion. CONCLUSIONS -------- 1. Sinus rhythm. 2. This was a technically good study. 3. The left ventricular size is normal. 4. Left ventricular wall thickness is normal. 5. Overall left ventricular systolic function is normal with, an EF between 60 - 65 %. 6. The right ventricle is normal in size. 7. Normal LA size by volume 22+/-6 ml/m2. 8. The right atrium is normal in size. 9. The aortic valve is trileaflet and appears structurally normal. 10. The mitral valve is normal. 11. The tricuspid valve appears structurally normal. 12. Trace/mild (physiologic) pulmonic regurgitation. 13. The aortic root size is normal. 14. Normal inferior vena cava with normal inspiratory collapse consistent with estimated right atrial pressure of 5 mmHg. 15. There is no pericardial effusion. DIRECTOR INTERNAL COMMUNICATIONS: Rosa M Short RDCS
[2018-02-22 12:20] VITALS: BP 103/53; PULSE 60; TEMP 98
[2018-02-22] MEDS: PANTOPRAZOLE 40 MG/10 ML VIAL IVP SCH (16:02)
--- NOTE | 2018-02-22 19:32 | P.DS ---
Providers Date of admission: 02/21/18 11:09 Attending physician: Eulalio Garcia Consults: 02/21/18 11:09 Consult Physician Urgent Consulting Provider: Sae Mckeon Consult Reason/Comments: chest pain Do you want consulting provider notified?: Yes Primary care physician: Juanito Mk [place] [facility] Course: Patient given a chest pain, was evaluated by cardiology rule out acute coronary syndromes patient underwent the echocardiogram which was negative and cardiology is recommending outpatient stress test. Patient had a gastritis symptoms for which patient will be discharged on Prilosec. Patient also underwent ultrasound of the gallbladder which was ordered by cardiology which was negative for any cholelithiasis. PHYSICAL EXAMINATION: GENERAL: The patient is alert and oriented x3, not in any acute distress. Well developed, well nourished. HEENT: Pupils are round and equally reacting to light. EOMI. No scleral icterus. No conjunctival pallor. Normocephalic, atraumatic. No pharyngeal erythema. No thyromegaly. CARDIOVASCULAR: S1 and S2 present. No murmurs, rubs, or gallops. PULMONARY: Chest is clear to auscultation, no wheezing or crackles. ABDOMEN: Soft, nontender, nondistended, normoactive bowel sounds. No palpable organomegaly. MUSCULOSKELETAL: No joint swelling or deformity. EXTREMITIES: No cyanosis, clubbing, or pedal edema. NEUROLOGICAL: Gross neurological examination did not reveal any focal deficits. SKIN: No rashes. Please refer to my dictation of H&P for further details of hospitalization course chronic medical problems and the treatment Patient Condition at Discharge: Good Plan - Discharge Summary Discharge Rx Participant: No New Discharge Prescriptions: New Omeprazole [PriLOSEC] 40 mg PO AC-BRKFST #14 capsule. No Action ALPRAZolam [Xanax] 0.5 mg PO Q8H PRN PRN Reason: Anxiety Amitriptyline HCl [Elavil] 25 mg PO HS Discharge Medication List ALPRAZolam [Xanax] 0.5 mg PO Q8H PRN 05/23/17 [History] Amitriptyline HCl [Elavil] 25 mg PO HS 02/21/18 [History] Omeprazole [PriLOSEC] 40 mg PO AC-BRKFST #14 capsule. 02/22/18 [Rx] Follow up Appointment(s)/Referral(s): Wade Aguirre MD [STAFF PHYSICIAN] - 03/22/18 3:15 pm Juanito Terrazas DO [Primary Care Provider] - 1 Week Patient Instructions/Handouts: Chest Pain (DC) Discharge Disposition: HOME SELF-CARE
[2018-02-23] MEDS ORDERED: PANTOPRAZOLE 40 MG TABLET PO SCH (07:30)
== END 2018-02-22 17:10 | disposition home or self-care (01) ==
LOC: EC 08:42 → 3OBS 11:09
PROVIDERS: ADMIT Hospitalist; ATTEND Hospitalist
DX: R07.89 Other chest pain (principal); K21.9 Gastro-esophageal reflux disease without esophagitis; R06.02 Shortness of breath; R61 Generalized hyperhidrosis; F41.9 Anxiety disorder, unspecified; R32 Unspecified urinary incontinence; F32.9 Major depressive disorder, single episode, unspecified; E66.9 Obesity, unspecified; Z68.33 Body mass index [BMI] 33.0-33.9, adult; Z79.899 Other long term (current) drug therapy; Z91.041 Radiographic dye allergy status; Z91.013 Allergy to seafood; Z91.018 Allergy to other foods; Z91.048 Other nonmedicinal substance allergy status; Z86.14 Personal history of Methicillin resistant Staphylococcus aureus infection; Z90.710 Acquired absence of both cervix and uterus; Z83.2 Family history of diseases of the blood and blood-forming organs and certain disorders involving the immune mechanism; Z82.49 Family history of ischemic heart disease and other diseases of the circulatory system; Z80.3 Family history of malignant neoplasm of breast; Z83.49 Family history of other endocrine, nutritional and metabolic diseases
CPT/HCPCS: 96374 ×2; 96375 ×2; 99285 ×2; 36415; 94760; 93005; 93306; 85379; 80061; 80053; 82150; 82550; 82553; 83690; 83735; 84484; 85025; 85610; 85730; 71046; 76700; G0378 ×2; J2270; C9113

== ENCOUNTER → 2018-02-28 | Outpatient (CLI) | payer BC ==
--- NOTE | 2018-02-28 11:14 | EST ---
EXERCISE STRESS AGE: 42 SEX: F HT: 64" WT: 192 PROTOCOL: Gab Stress Test study STAGE: 4 DURATION OF EXERCISE: 10:00 HEART RATE REST: 93 BLOOD PRESSURE REST: 107/55 MAXIMUM HEART RATE ACHIEVED: 157 MAXIMUM BLOOD PRESSURE: 158/68 85% MPHR: 153 100% MPHR: 180 METS: 11.7 INDICATIONS: Chest pain. CLINICAL INFORMATION: STRESS DATA: Pretesting physical examination showed heart rate of 93, pressure is 107/55 mmHg. Baseline EKG showed sinus mechanism. The patient exercised on the treadmill according to Gab protocol for a total of 10 minutes and achieved 11.7 METS. Max heart rate was 157, which is about 87% of maximum predicted heart rate. Maximal blood pressure was 158/68 mmHg. Clinically, the patient did not have any symptoms of chest pain or discomfort and the EKG did not show any significant ST or T-wave abnormalities consistent with ischemia. CONCLUSION: 1. Excellent exercise capacity. 2. Normal EKG in response to exercise. 3. Essentially normal stress test for the patient. MMODL / IJN: [id number] /
== END | disposition home or self-care (01) ==
LOC: RADNMMAIN 09:06
PROVIDERS: ATTEND Emergency Medicine
DX: R07.89 Other chest pain (principal)
CPT/HCPCS: 93017

== ENCOUNTER → 2018-07-19 | Outpatient (CLI) | payer OTHER ==
--- NOTE | 2018-07-22 10:17 | MM ---
Reason for exam: screening (asymptomatic). Last mammogram was performed 1 year and 2 months ago. History: Family history of breast cancer in mother at age 60. Physical Findings: A clinical breast exam by your physician is recommended on an annual basis and results should be correlated with mammographic findings. MG Screening Mammo w CAD Bilateral CC and MLO view(s) were taken. Prior study comparison: May 03, 2017, bilateral MG screening mammo w CAD. There are scattered fibroglandular densities. There is no discrete abnormality. No significant changes when compared with prior studies. ASSESSMENT: Negative, BI-RAD 1 RECOMMENDATION: Routine screening mammogram of both breasts in 1 year.
== END ==
LOC: RADMAMWWP 09:02
DX: Z12.31 Encounter for screening mammogram for malignant neoplasm of breast (principal)
CPT/HCPCS: 77067

== ENCOUNTER → 2019-09-10 | Outpatient (CLI) | payer OTHER ==
--- NOTE | 2019-09-11 10:56 | MM ---
Reason for exam: screening (asymptomatic). Last mammogram was performed 1 year and 2 months ago. History: Family history of breast cancer in mother at age 60. Physical Findings: A clinical breast exam by your physician is recommended on an annual basis and results should be correlated with mammographic findings. MG Screening Mammo w CAD Bilateral CC and MLO view(s) were taken. Prior study comparison: July 19, 2018, bilateral MG screening mammo w CAD. May 03, 2017, bilateral MG screening mammo w CAD. The breast tissue is heterogeneously dense. This may lower the sensitivity of mammography. There is no discrete abnormality. No significant changes when compared with prior studies. ASSESSMENT: Negative, BI-RAD 1 RECOMMENDATION: Routine screening mammogram of both breasts in 1 year.
== END | disposition home or self-care (01) ==
LOC: RADMAMWWP 07:30
DX: Z12.31 Encounter for screening mammogram for malignant neoplasm of breast (principal)
CPT/HCPCS: 77067

== ENCOUNTER → 2020-12-10 | Outpatient (CLI) | payer OTHER ==
--- NOTE | 2020-12-13 11:56 | MM ---
Reason for exam: screening (asymptomatic). Last mammogram was performed 1 year and 3 months ago. History: Family history of breast cancer in mother at age 60. Physical Findings: A clinical breast exam by your physician is recommended on an annual basis and results should be correlated with mammographic findings. MG Screening Mammo w CAD Bilateral CC and MLO view(s) were taken. Prior study comparison: September 10, 2019, bilateral MG screening mammo w CAD. July 19, 2018, bilateral MG screening mammo w CAD. The breast tissue is heterogeneously dense. This may lower the sensitivity of mammography. No significant changes when compared with prior studies. ASSESSMENT: Negative, BI-RAD 1 RECOMMENDATION: Routine screening mammogram of both breasts in 1 year.
== END | disposition home or self-care (01) ==
LOC: RADMAMWWP 09:04
DX: Z12.31 Encounter for screening mammogram for malignant neoplasm of breast (principal); Z91.041 Radiographic dye allergy status; Z91.013 Allergy to seafood; Z91.02 Food additives allergy status; Z91.048 Other nonmedicinal substance allergy status
CPT/HCPCS: 77067

== ENCOUNTER → 2021-02-24 | Outpatient (CLI) | payer OTHER ==
--- NOTE | 2021-02-24 19:10 | XR ---
EXAMINATION TYPE: XR chest 2V DATE OF EXAM: 02/24/2021 COMPARISON: 02/21/2018 HISTORY: Chest pain TECHNIQUE: 2 views FINDINGS: Heart and mediastinum are normal. Lungs are clear. Diaphragm is normal. Bony thorax is inta ct. IMPRESSION: Normal chest. No change.
== END | disposition home or self-care (01) ==
LOC: RADXRMAIN 17:25
PROVIDERS: ATTEND Family Medicine
DX: R07.9 Chest pain, unspecified (principal)
CPT/HCPCS: 71046

== ENCOUNTER → 2021-03-29 | Outpatient (CLI) | payer OTHER ==
--- NOTE | 2021-03-29 22:40 | MR ---
EXAMINATION TYPE: MR knee RT wo con DATE OF EXAM: 03/29/2021 COMPARISON: None. HISTORY: Right knee pain x 1 year TECHNIQUE: Multiplanar, multisequence imaging of the right knee is performed without IV contrast. FINDINGS: MEDIAL MENISCUS: Anterior and posterior horns are intact without tear. LATERAL MENISCUS: Anterior and posterior horns are intact without tear. CRUCIATE LIGAMENTS: The anterior and posterior cruciate ligaments are intact and unremarkable. COLLATERAL LIGAMENTS: The medial collateral ligament and lateral collateral ligament complex are inta ct and unremarkable. EXTENSOR MECHANISM: Visualized quadriceps and patellar tendons are intact. EFFUSION: No significant suprapatellar joint effusion. POPLITEAL CYST: No popliteal/lowery cyst. TRICOMPARTMENT SPACES: CARTILAGE: BONE MARROW SIGNAL: No focal abnormal marrow signal is appreciated. OTHER: No additional significant abnormality is appreciated. IMPRESSION:
== END | disposition home or self-care (01) ==
LOC: RADMRIMAIN 09:22
PROVIDERS: ATTEND Physician Assistant Medical
DX: M25.561 Pain in right knee (principal)

== ENCOUNTER → 2022-02-08 | Outpatient (CLI) | payer OTHER ==
--- NOTE | 2022-02-09 11:36 | MM ---
Reason for exam: screening (asymptomatic). Last mammogram was performed 1 year and 2 months ago. History: Family history of breast cancer in mother at age 60. Physical Findings: A clinical breast exam by your physician is recommended on an annual basis and results should be correlated with mammographic findings. MG Screening Mammo w CAD Bilateral CC and MLO view(s) were taken. Prior study comparison: December 10, 2020, bilateral MG screening mammo w CAD. September 10, 2019, bilateral MG screening mammo w CAD. The breast tissue is heterogeneously dense. This may lower the sensitivity of mammography. There is no discrete abnormality. No significant changes when compared with prior studies. ASSESSMENT: Negative, BI-RAD 1 RECOMMENDATION: Routine screening mammogram of both breasts in 1 year.
== END | disposition home or self-care (01) ==
LOC: RADMAMWWP 08:26
DX: Z12.31 Encounter for screening mammogram for malignant neoplasm of breast (principal); Z80.3 Family history of malignant neoplasm of breast
CPT/HCPCS: 77067

== ENCOUNTER 2022-05-18 14:56 | Emergency (ER) | payer OTHER ==
[2022-05-18 15:07] VITALS: BP 135/73; PULSE 80; RESP 18; TEMP 97.9
--- NOTE | 2022-05-18 15:58 | XR ---
EXAMINATION TYPE: XR ankle complete LT DATE OF EXAM: 05/18/2022 COMPARISON: NONE HISTORY: Pain FINDINGS: Three views of the ankle demonstrate the ankle mortise to be intact and symmetric. The joint spaces are preserved. The osseous structures are intact. Soft tissue calcification noted. IMPRESSION: 1. No definite acute fracture or dislocation, if symptoms persist follow-up study in 7 to 10 days wou ld be suggested.
--- NOTE | 2022-05-18 16:01 | ED ---
Lower Extremity Injury HPI - General Chief Complaint: Extremity Injury, Lower Stated Complaint: IHS-ankle injury Time Seen by Provider: 05/18/22 14:58 Source: patient, EMS, RN notes reviewed Mode of arrival: EMS Limitations: physical limitation - History of Present Illness Initial Comments: 46-year-old female presents emergency Department with chief left ankle injury. Patient states she stepped on the wheel the trashcan states that she rolled her ankle. Patient states she felt a pop patient went of left lateral ankle pain. Patient states she's had injury in the past. No paresthesias. Patient offers no complaints. - Related Data Home Medications Medication Instructions Recorded Confirmed ALPRAZolam [Xanax] 0.5 mg PO Q8H PRN 05/23/17 02/21/18 Amitriptyline HCl [Elavil] 25 mg PO HS 02/21/18 02/21/18 Previous Rx's Medication Instructions Recorded Omeprazole [PriLOSEC] 40 mg PO AC-BRKFST #14 capsule. 02/22/18 Ibuprofen [Motrin] 600 mg PO Q8HR PRN #20 tab 05/18/22 Allergies Allergy/AdvReac Type Severity Reaction Status Date / Time Fish Containing Products Allergy Rash/Hives Verified 02/21/18 09:23 [Fish] Iodinated Contrast Media Allergy Rash/Hives Verified 02/21/18 09:23 [Iodinated Contrast Media - IV Dye] nickel Allergy Rash/Hives Verified 02/21/18 09:23 red dye Allergy Rash/Hives Verified 05/18/22 15:08 shellfish derived [Shellfish] Allergy Rash/Hives Verified 02/21/18 09:23 Review of Systems ROS Statement: Those systems with pertinent positive or pertinent negative responses have been documented in the HPI. ROS Other: All systems not noted in ROS Statement are negative. Past Medical History Past Medical History: GERD/Reflux Additional Past Medical History / Comment(s): FIBROIDS. URINARY INCONTINENCE. History of Any Multi-Drug Resistant Organisms: MRSA Date of last positivie culture/infection: 02/2012 MDRO Source:: SKIN:LEFT KNEE,HIP & SHOULDER Past Surgical History: Hysterectomy Additional Past Surgical History / Comment(s): WISDOM TEETH EXTRACTION, upper dental implant Past Anesthesia/Blood Transfusion Reactions: No Reported Reaction Past Psychological History: Anxiety, Depression Past Alcohol Use History: None Reported Past Drug Use History: None Reported - Past Family History Mother Family Medical History: Cancer, Deep Vein Thrombosis (DVT), Hyperlipidemia, Hypertension, Thyroid Disorder Additional Family Medical History / Comment(s): breast cancer Father Family Medical History: Hyperlipidemia, Hypertension Additional Family Medical History / Comment(s): boarderline diabetic General Exam Limitations: physical limitation General appearance: alert, in no apparent distress Neck exam: Present: normal inspection, full ROM. Absent: tenderness, meningismus, lymphadenopathy Respiratory exam: Present: normal lung sounds bilaterally. Absent: respiratory distress, wheezes, rales, rhonchi, stridor Cardiovascular Exam: Present: regular rate, normal rhythm, normal heart sounds. Absent: systolic murmur, diastolic murmur, rubs, gallop, clicks Extremities exam: Present: other (Left ankle there is tenderness on the lateral malleolar region, moderate swelling neurovascular intact no proximal tib-fib ten derness) Neurological exam: Present: alert, oriented X3, CN II-XII intact, reflexes normal. Absent: motor sensory deficit Course Vital Signs 05/18/22 15:04 Temperature 97.9 F Pulse Rate 80 Respiratory 18 Rate Blood Pressure 135/73 O2 Sat by Pulse 96 Oximetry Medical Decision Making - Medical Decision Making X-rays negative for acute fracture. Patient left ankle sprain. Patient will be discharged in stable condition return parameters discussed. Disposition Clinical Impression: Left ankle sprain Disposition: HOME SELF-CARE Condition: Stable Instructions (If sedation given, give patient instructions): Ankle Sprain (ED) Additional Instructions: Please return to the Emergency Department if symptoms worsen or any other concerns. Prescriptions: Ibuprofen [Motrin] 600 mg PO Q8HR PRN #20 tab PRN Reason: Pain Is patient prescribed a controlled substance at d/c from ED?: No Referrals: [facility] [Primary Care Provider] - 1-2 days Time of Disposition: 16:05
== END 2022-05-18 16:37 | disposition home or self-care (01) ==
LOC: EC 14:56
DX: S93.492A Sprain of other ligament of left ankle, initial encounter (principal); K21.9 Gastro-esophageal reflux disease without esophagitis; F41.9 Anxiety disorder, unspecified; F32.A Depression, unspecified; Z91.013 Allergy to seafood; Z91.041 Radiographic dye allergy status; Z79.899 Other long term (current) drug therapy; W22.8XXA Striking against or struck by other objects, initial encounter
CPT/HCPCS: 73610; 99283; L4350